=== PATIENT | male | born 1985 | race Caucasian/White ===

== ENCOUNTER 2021-02-19 15:34 | Emergency (ER) | payer MEDICAID, SELFPAY ==
[2020-02-27 13:24] VITALS: BMI 20.6
[2021-02-19 15:34] VITALS: BP 135/77; PULSE 118; RESP 26; TEMP 36.1; O2SAT 93; BMI 20.4
--- NOTE | 2021-02-19 15:39 | ED.RN ---
PT APPEARS AGITATED HE IS NOT TAKEN RIGHT TO ROOM. PT 93-94% ON ROOM AIR. PT TRIAGED AND THEN WALKED BACK FROM TRIAGE BY THIS RN. STAFF TO PLACE PT IN GOWN
[2021-02-19 15:42] VITALS: O2SAT 98
--- NOTE | 2021-02-19 15:46 | EKG12_ITS ---
Test Reason : SOB Blood Pressure : / mmHG Vent. Rate : 113 BPM Atrial Rate : 113 BPM P-R Int : 168 ms QRS Dur : 092 ms QT Int : 332 ms P-R-T Axes : 080 095 047 degrees QTc Int : 455 ms Sinus tachycardia Poor R wave progression Anteroseptal PR, age undetermined, cannot be excluded Confirmed by RODERICK BAIRES, LANE ([id number]), structural steel painter ALESSANDRA FOWLER ([id number]) on 02/22/2021 9:58:06 AM Referred By: RAMESH Confirmed By:LANE VAUGHN MD
--- NOTE | 2021-02-19 15:47 | ED.VIS.DYS ---
HPI History of Present Illness Chief Complaint: Asthma Informant: patient Onset/Context/Timing Onset: Today Context: sudden Timing: Continuous Quality: Positive for Wheezing Current Severity: Moderate Maximum Severity: Moderate Worsened by: Exertion Relieved by: Nothing; Not Relieved By Albuterol Associated Symptoms Negative for cough Chest Pain: Positive for Tightness Narrative Narrative: Patient states he has severe asthma, he takes daily Symbicort and has been compliant with it. 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 He uses rescue inhaler but it is not helping. He was fine prior to this. [facility] Medical History Asthma Fatigue Hemorrhoids SOB (shortness of breath) Weight loss, unintentional Home Medications albuterol sulfate 90 mcg/actuation aerosol inhaler 2 puff INHALATION Q4H PRN PRN 02/27/20 [History Last Taken Unknown] budesonide-formoterol [Symbicort] 2 puff INHALATION Q12H 02/19/21 [History Last Taken Unknown] prednisone 40 mg PO DAILY #6 tablet 02/19/21 [Rx Last Taken Unknown] Allergy/AdvReac Type Severity Reaction Status Date / Time No Known Allergies Allergy Unverified 02/19/21 15:34 Family History (Updated 02/27/20 @ 13:27 by Danika Casper) Other Heart disease Social History Smoking Status: Current every day smoker tobacco type: cigarettes alcohol intake: never ROS ROS ED Constitutional Constitutional ED: Denies chills or fever(s) Eyes Eyes: Denies change in vision or diplopia ENT ENT ED: Denies rhinorrhea or sore throat Cardiovascular Cardiovascular: Reports as per HPI and chest pain; Denies palpitations Respiratory/Chest Respiratory/Chest: Reports as per HPI, dyspnea and wheezing; Denies cough Gastrointestinal Gastrointestinal: Denies abdominal pain, diarrhea, nausea or vomiting Genitourinary Genitourinary ED: Denies dysuria or hematuria Musculoskeletal Musculoskeletal: Denies back pain or neck pain Integumentary Denies abscess or rash Neurologic Neurologic: Denies headache(s), paresthesias or weakness Psychiatric Psychiatric: Denies anxiety or suicidal thoughts EXAM Physical Exam Const Vital Signs: 02/19/21 15:34 02/19/21 15:42 02/19/21 15:57 Temperature 96.9 F L Temperature Source Temporal Pulse Rate 118 H 107 H Respiratory Rate 26 H 15 Respiratory Effort Short of Breath Respiratory Depth Shallow Respiratory Pattern Tachypnea Normal Blood Pressure 135/77 H Blood Pressure Mean 96 Pulse Ox 93 Oxygen Delivery Method Room Air Room Air 02/19/21 16:15 Temperature Temperature Source Pulse Rate 105 H Respiratory Rate Respiratory Effort Respiratory Depth Respiratory Pattern Blood Pressure Blood Pressure Mean Pulse Ox 96 Oxygen Delivery Method Room Air Positive well nourished and well developed General Appearance ED: well developed and NAD HEENT Reports moist mucous membranes normocephalic and atraumatic Eyes PERRL and EOMs intact bilaterally Neck full ROM and supple Resp normal respiratory effort Auscultation: wheezes expiratory wheezes, inspiratory wheezes and throughout; Negative for crackles, rales or rhonchi Cardio regular rate, regular rhythm and no murmurs Rate: tachycardic GI non-tender and non-distended Auscultation: normoactive bowel sounds Palpation: soft Back/Spine no CVA tenderness General Back: other FROM Extremity normal to inspection General Extremety ED: Negative for edema, pulses abnormal or tenderness General Extremity: Negative for edema or pulses abnormal Neuro oriented x3, CN's II-XII intact bilaterally and no sensory deficits noted Sensorium / Orientation: awake and alert Motor Exam: strength 5/5 throughout Skin no rashes or lesions noted and no wounds MDM MDM MDM Narrative Medical decision making narrative: Patient was given a set of nebulizer treatments and feels much better afterwards. Since this was induced by chemical fumes, I think a [id number] prescription for a few days of prednisone would be most reasonable. Discussed this thoroughly with the patient he is comfortable with that plan. Discharge Plan Triage Chief Complaint: Asthma ED Provider: Onel Pete Dx/Rx/DC Orders Clinical Impression: Acute asthma exacerbation Instructions: ED Asthma, Acute (Adult) Prescriptions: New prednisone 20 MG tablet 40 mg PO DAILY Qty: 6 RF: 0 No Action albuterol sulfate 90 mcg/actuation HFA aerosol inhaler 2 puff INHALATION Q4H PRN PRN (Reason: Wheezing) RF: 0 budesonide-formoterol [Symbicort] 160-4.5 mcg/actuation Hfa Aerosol Inhaler 2 puff INHALATION Q12H RF: 0 Primary Care Provider: Parveen Li Referrals: Parveen Li MD [Primary Care Provider] - 3-5 Days if not improving Activity Restrictions/Additional Instructions: Prescription for prednisone should be filled ONLY if you continue to have a significant flareup and needing your rescue inhaler more than once throughout the rest of the day. Disposition Disposition: Home, Self Care
[2021-02-19] MEDS: Albuterol 2.5 MG/3 ML VIAL.NEB. INHALATION ×2 (15:53)
[2021-02-19] MEDS: Ipratropium/Albuterol Sulfate 3 ML AMPUL.NEB INHALATION (15:53)
[2021-02-19 15:57] VITALS: PULSE 107; RESP 15
[2021-02-19 16:15] VITALS: PULSE 105; O2SAT 96
[2021-02-19 16:59] VITALS: PULSE 109; RESP 16; O2SAT 98
== END 2021-02-19 17:00 | disposition home or self-care (01) ==
PROVIDERS: Emergency Provider Emergency Medicine; PCP Family Medicine
DX: J45.901 Unspecified asthma with (acute) exacerbation (principal); F17.210 Nicotine dependence, cigarettes, uncomplicated
CPT/HCPCS: 93005; 94640; 99282